=== PATIENT | male | born 1950 | race Caucasian/White ===

== ENCOUNTER 2022-01-04 00:21 | Day surgery (SDC) | payer MEDICARE, SELFPAY ==
[2021-10-14 12:32] VITALS: BMI 34.3
--- NOTE | 2022-01-01 12:38 | PM.HPGS ---
History of Present Illness History of Present Illness Consent: Risks, benefits, and alternatives have been discussed and questions answered. Patient agrees to proceed with procedure. Chief complaint: hx of colon polyps Narrative: Javier Patrick is a 71 year old male referred for colon cancer screening. He has had polyps removed in the past, most recently 2015 Review of Systems Review of Systems: All systems reviewed & are unremarkable except as noted in HPI and below PMFSH Past Medical History Medical History CAD (coronary artery disease) Diabetes Obesity PAT (obstructive sleep apnea) Surgical History Surgical History H/O colonoscopy History of coronary artery stent placement Social History Social History Years smoked: 30 Smoking status: Former smoker Tobacco type: cigarettes Alcohol intake: current Drinks per week: 2 Living arrangements: with family Spiritual care concerns: No Meds Home Medications and Allergies Home Medications Medication Instructions Recorded Confirmed Type aspirin [Adult Low Dose Aspirin] 81 mg PO DAILY 10/14/21 10/14/21 History ezetimibe-simvastatin 1 tablet PO DAILY 10/14/21 10/14/21 History metformin 500 mg PO BID 10/14/21 10/14/21 History nebivolol [Bystolic] 10 mg PO DAILY 10/14/21 10/14/21 History nifedipine 60 mg PO DAILY 10/14/21 10/14/21 History quinapril 20 mg PO BID 10/14/21 10/14/21 History Allergies Allergy/AdvReac Type Severity Reaction Status Date / Time No Known Allergies Allergy Verified 01/04/22 06:27 Exam Resp: Auscultation: clear to auscultation bilaterally Cardio: Rate: regular rate Rhythm: regular rhythm GI: GI Palp: Yes Soft to palpation and No Tenderness to palpation present (GI) Assessment and Plan Assessment and plan (1) Colon cancer screening: Code(s): Z12.11 - Encounter for screening for malignant neoplasm of colon Status: Acute Assessment and Plan: Colonoscopy with possible biopsy or polypectomy or cautery or injection of substances.
[2022-01-04 06:28] VITALS: BP 156/72; PULSE 76; RESP 16; TEMP 36.3; O2SAT 96; BMI 32.6
[2022-01-04] MEDS: LACTATED RINGERS 1,000 ML 150 ML IV CONT (06:36)
[2022-01-04 06:41] LABS: Glucose Point of Care 114 mg/dl (65-105)
--- NOTE | 2022-01-04 06:58 | WPDANESEPPF ---
Anes - Initial Pre Proc Eval Procedure: Operation Date: 01/04/22 07:30 Proposed Procedures p Screening Colonoscopy - Biju Holland MD Date/Time: 01/04/22 06:58 Surgeon: Biju Holland MD Pre Op Diagnosis: hx of colon polyps Patient Data Age: 71 Gender: M Height: 1.85 m Weight: 112.3 kg Last Vital Signs Temp 36.3 C L 01/04/22 06:28 Pulse 76 01/04/22 06:28 Resp 16 01/04/22 06:28 BP 156/72 H 01/04/22 06:28 Pulse Ox 96 01/04/22 06:28 Allergies Allergy/AdvReac Type Severity Reaction Status Date / Time No Known Allergies Allergy Verified 01/04/22 06:27 Home Medications Medication Instructions Recorded Confirmed Type aspirin [Adult Low Dose Aspirin] 81 mg PO DAILY 10/14/21 10/14/21 History ezetimibe-simvastatin 1 tablet PO DAILY 10/14/21 10/14/21 History metformin 500 mg PO BID 10/14/21 10/14/21 History nebivolol [Bystolic] 10 mg PO DAILY 10/14/21 10/14/21 History nifedipine 60 mg PO DAILY 10/14/21 10/14/21 History quinapril 20 mg PO BID 10/14/21 10/14/21 History Laboratory Tests 01/04/22 06:38 POC Capillary Glucose 114 mg/dl H mg/dl (65-105) Patient hx anesthesia problems: none Family hx anesthesia problems: none Results Review: All pre-operative results and documents have been reviewed as part of the pre-operative evaluation. [facility], [facility] Past Medical History Medical History (Updated 01/04/22 @ 06:59 by Jan Fields MD) CAD (coronary artery disease) Diabetes Obesity PAT (obstructive sleep apnea) Surgical History Surgical History (Updated 01/04/22 @ 06:59 by Jan Fields MD) H/O colonoscopy History of coronary artery stent placement Social History Social History Years smoked: 30 Smoking status: Former smoker Tobacco type: cigarettes Alcohol intake: current Drinks per week: 2 Living arrangements: with family Spiritual care concerns: No Anes - Eval Final PreProcedure Day of Procedure 01/04/22 06:58 Patient weight: obese Heart: regular rate and rhythm Lungs: clear to auscultation Airway: Mallampati scale class II Neurological: alert and oriented Last oral intake: >/= 8 hours ASA classification: III Emergent: no Anesthetic plan: proceed Anesthesia type and monitoring: general GIVS and standard monitoring Results Review: All pre-operative results and documents have been reviewed as part of the pre-operative evaluation. Informed Consent: The patient's anesthetic plan and its attendant risks and benefits were discussed with the patient/family/POA. Questions were solicited and answers provided to the satisfaction of the patient/family/POA.
[2022-01-04 07:51] VITALS: BP 110/69; PULSE 61; RESP 15; O2SAT 95
[2022-01-04 08:01] VITALS: BP 123/73; PULSE 60; RESP 20; O2SAT 97
[2022-01-04 08:11] VITALS: BP 139/77; PULSE 58; RESP 20; O2SAT 99
== END 2022-01-04 08:21 | disposition home or self-care (01) ==
PROVIDERS: PCP Internal Medicine; Visit Provider Internal Medicine Gastroenterology
PROC: 0DJD8ZZ Inspection of Lower Intestinal Tract, Via Natural or Artificial Opening Endoscopic (ICD-10-PCS; CPT 45378; principal; 2022-01-04 07:30)
DX: Z12.11 Encounter for screening for malignant neoplasm of colon (principal); K57.30 Diverticulosis of large intestine without perforation or abscess without bleeding; K62.1 Rectal polyp; Z79.82 Long term (current) use of aspirin; Z79.84 Long term (current) use of oral hypoglycemic drugs; I25.10 Atherosclerotic heart disease of native coronary artery without angina pectoris; E11.9 Type 2 diabetes mellitus without complications; G47.33 Obstructive sleep apnea (adult) (pediatric); F17.210 Nicotine dependence, cigarettes, uncomplicated; E66.9 Obesity, unspecified; Z68.32 Body mass index [BMI] 32.0-32.9, adult; Z95.5 Presence of coronary angioplasty implant and graft
CPT/HCPCS: 45385; 82948; 88305; J2001; J2704; J7120